=== PATIENT | female | born 1985 | race American Indian/Alaskan Native ===

== ENCOUNTER 2017-05-23 07:40 | Emergency (ER) | payer OTHER ==
[2017-05-23 07:46] VITALS: BP 147/107
[2017-05-23] MEDS ORDERED: DUONEB *Not for PRN Use IH ONE (10:12)
[2017-05-23] MEDS ORDERED: BSS 1 DROPS, TETRACAINE 0.5% 1 DROPS, FUL-GLO 1 MG OU ONE (10:13)
[2017-05-23] MEDS ORDERED: BSS ONE (10:19)
[2017-05-23] MEDS ORDERED: FUL-GLO OP ONE (10:19)
[2017-05-23] MEDS ORDERED: TETRACAINE 0.5% ONE (10:20)
--- NOTE | 2017-05-23 11:13 | Emergency Department Report ---
ED Eye Problem HPI - General Chief complaint: Eye Problems Stated complaint: EYE IRRITATION/SOB Time Seen by Provider: 05/23/17 10:09 Source: patient Mode of arrival: Ambulatory Limitations: No Limitations - History of Present Illness Initial comments: Patient is a 31-year-old female with history of asthma presents due to bilateral eye redness and pain 4 days. Patient denies any fever or chills. Patient states that she has had postnasal drainage and congestion for the past 2 days. Patient denies any cough or sore throat. Patient admits of having wheezing. Patient denies any injury to her eyes. Patient denies any history of contact lenses use. MD chief complaint: eye pain, eye redness Onset/Timin -: days(s) Onset Description: sudden Location: both eyes Place: home If Injury: none Eye Symptoms: burning, redness, pain Severity: moderate If Pain, Quality: aching Consistency: constant Associated Symptoms: other (post nasal driange and wheezing) - Related Data Previous Rx's Medication Instructions Recorded Last Taken Type Albuterol Sulfate [Proventil HFA] 1 - 2 puff IH Q4H PRN #1 hfa.aer.ad 09/03/14 1 Day Ago Rx metroNIDAZOLE [Flagyl] 500 mg PO BID #14 tablet 01/12/15 Unknown Rx metroNIDAZOLE [Flagyl] 500 mg PO BID #14 tablet 02/08/15 Unknown Rx Acetaminophen/Codeine [Tylenol #3] 1 tab PO Q6H PRN #20 tab 06/12/15 Unknown Rx Ibuprofen [Motrin] 600 mg PO Q8H PRN #40 tablet 06/12/15 Unknown Rx metroNIDAZOLE [Flagyl TAB] 500 mg PO Q12HR #20 tab 06/12/15 Unknown Rx ALBUTEROL Inhaler [ProAir HFA 1 puff INHALATION BID PRN #1 inha 12/17/15 Unknown Rx Inhaler] Azithromycin [Zithromax] 250 mg PO DAILY #1 pkg 12/17/15 Unknown Rx Loratadine [Claritin] 10 mg PO DAILY #30 tablet 12/17/15 Unknown Rx ALBUTEROL NEB's [Proventil 0.083% 2.5 mg IH TID PRN #25 neb 05/23/17 Unknown Rx NEBS] Cetirizine HCl [ZyrTEC] 10 mg PO DAILY #10 tab.rapdis 05/23/17 Unknown Rx Fluticasone [Flonase] 2 spray NS QDAY #1 bottle 05/23/17 Unknown Rx Prednisone [predniSONE 10 mg 10 mg PO .TAPER #1 tab.ds.pk 05/23/17 Unknown Rx (6-Day Pack, 21 Tabs)] Tobramycin 0.3% [Tobrex] 1 drop OU Q4HR #1 bottle 05/23/17 Unknown Rx Allergies Allergy/AdvReac Type Severity Reaction Status Date / Time latex Allergy Rash Verified 12/17/15 09:19 Penicillins Allergy Hives Verified 12/17/15 09:19 ED Review of Systems ROS: Stated complaint: EYE IRRITATION/SOB Other details as noted in HPI Comment: All other systems reviewed and negative Constitutional: no symptoms reported. denies: chills, fever Eyes: eye pain, eye discharge ENT: congestion. denies: ear pain, throat pain, dental pain, hearing loss, epistaxis Respiratory: denies: cough, shortness of breath, SOB with exertion, SOB at rest , stridor, wheezing Cardiovascular: denies: chest pain Gastrointestinal: denies: abdominal pain, nausea, vomiting, diarrhea Genitourinary: denies: urgency, dysuria, frequency Musculoskeletal: denies: back pain ED Past Medical Hx - Past Medical History Previous Medical History?: Yes Hx Asthma: Yes - Surgical History Past Surgical History?: No - Social History Smoking Status: Never Smoker Substance Use Type: Alcohol - Medications Home Medications: Home Medications Medication Instructions Recorded Confirmed Last Taken Type Albuterol Sulfate [Proventil HFA] 1 - 2 puff IH Q4H PRN #1 hfa.aer.ad 09/03/14 01/11/15 1 Day Ago Rx metroNIDAZOLE [Flagyl] 500 mg PO BID #14 tablet 01/12/15 Unknown Rx metroNIDAZOLE [Flagyl] 500 mg PO BID #14 tablet 02/08/15 Unknown Rx Acetaminophen/Codeine [Tylenol #3] 1 tab PO Q6H PRN #20 tab 06/12/15 Unknown Rx Ibuprofen [Motrin] 600 mg PO Q8H PRN #40 tablet 06/12/15 Unknown Rx metroNIDAZOLE [Flagyl TAB] 500 mg PO Q12HR #20 tab 06/12/15 Unknown Rx ALBUTEROL Inhaler [ProAir HFA 1 puff INHALATION BID PRN #1 inha 12/17/15 Unknown Rx Inhaler] Azithromycin [Zithromax] 250 mg PO DAILY #1 pkg 12/17/15 Unknown Rx Loratadine [Claritin] 10 mg PO DAILY #30 tablet 12/17/15 Unknown Rx ALBUTEROL NEB's [Proventil 0.083% 2.5 mg IH TID PRN #25 neb 05/23/17 Unknown Rx NEBS] Cetirizine HCl [ZyrTEC] 10 mg PO DAILY #10 tab.rapdis 05/23/17 Unknown Rx Fluticasone [Flonase] 2 spray NS QDAY #1 bottle 05/23/17 Unknown Rx Prednisone [predniSONE 10 mg 10 mg PO .TAPER #1 tab.ds.pk 05/23/17 Unknown Rx (6-Day Pack, 21 Tabs)] Tobramycin 0.3% [Tobrex] 1 drop OU Q4HR #1 bottle 05/23/17 Unknown Rx ED Physical Exam - General Limitations: No Limitations General appearance: alert, in no apparent distress - Head Head exam: Present: atraumatic, normocephalic, normal inspection - Eye Eye exam: Present: PERRL, EOMI, conjunctival injection. Absent: scleral icterus , nystagmus, periorbital swelling, periorbital tenderness Pupils: Present: normal accommodation - ENT ENT exam: Present: normal orophraynx, mucous membranes moist, normal external ear exam - Neck Neck exam: Present: normal inspection, full ROM. Absent: tenderness, meningismus - Respiratory Respiratory exam: Present: wheezes. Absent: rales, rhonchi, stridor - Cardiovascular Cardiovascular Exam: Present: regular rate, normal rhythm - Extremities Exam Extremities exam: Present: normal inspection, full ROM. Absent: tenderness - Back Exam Back exam: Present: normal inspection, full ROM. Absent: tenderness - Neurological Exam Neurological exam: Present: alert, oriented X3, normal gait - Psychiatric Psychiatric exam: Present: normal affect - Skin Skin exam: Present: warm, dry, intact ED Course Vital Signs 05/23/17 05/23/17 07:44 10:38 Temperature 97.8 F Pulse Rate 80 Pulse Rate [ 71 Bilateral] Pulse Rate [ 80 Throughout] Respiratory 16 Rate Respiratory 18 Rate [Bilateral ] Respiratory 18 Rate [ Throughout] Blood Pressure 147/107 O2 Sat by Pulse 100 Oximetry ED Medical Decision Making - Medical Decision Making Patient was in no acute distress, patient how wheezing upon auscultation in her bilateral lungs. Patient had conjunctival injection. Eye examination was performed Chakraborty lamp and patient had no corneal abrasion. Patient was given a DuoNeb treatment in the ER and Solu-Medrol IM. Patient was reevaluated after DuoNeb treatment and patient had clear bilateral lung sounds. Good air exchange. No wheezing. Patient will be discharged with a prescription for tobramycin to treat conjunctivitis. Patient will be prescribed prednisone tapering dose, Flonase, and Zyrtec. She will begin a refill for nebulizer treatments. - Differential Diagnosis conjunctivitis, sinusitis, asthma exacerbation. Critical care attestation.: If time is entered above; I have spent that time in minutes in the direct care of this critically ill patient, excluding procedure time. ED Disposition Clinical Impression: Wheezing Conjunctivitis Qualifiers: Conjunctivitis type: unspecified Laterality: bilateral Qualified Code(s): H10.9 - Unspecified conjunctivitis URI (upper respiratory infection) Qualifiers: URI type: unspecified viral URI Qualified Code(s): J06.9 - Acute upper respiratory infection, unspecified; B97.89 - Other viral agents as the cause of diseases classified elsewhere Disposition: DC-01 TO HOME OR SELFCARE Is pt being admited?: No Does the pt Need Aspirin: No Condition: Good Instructions: Conjunctivitis (ED), Asthma (ED), Upper Respiratory Infection (ED ) Additional Instructions: Apply Flonase spray to each nausea daily for 7 days. Do not use for more than 7 days. Apply tobramycin 2 drops to each lower eyelid every 4 hours for 7 days. You do not have to apply eyedrops while sleeping. Take prednisone tapering dose as prescribed. Prescriptions: ALBUTEROL NEB's [Proventil 0.083% NEBS] 2.5 mg IH TID PRN #25 neb PRN Reason: Wheezing Cetirizine HCl [ZyrTEC] 10 mg PO DAILY #10 tab.rapdis Fluticasone [Flonase] 2 spray NS QDAY #1 bottle Prednisone [predniSONE 10 mg (6-Day Pack, 21 Tabs)] 10 mg PO .TAPER #1 tab.ds.pk Tobramycin 0.3% [Tobrex] 1 drop OU Q4HR #1 bottle Referrals: PRIMARY CARE, [Primary Care Provider] - 3-5 Days [facility] [Outside] - 3-5 Days Time of Disposition: 11:18
== END 2017-05-23 11:23 | disposition home or self-care (01) ==
LOC: ED 07:40
DX: H10.9 Unspecified conjunctivitis (principal); B97.89 Other viral agents as the cause of diseases classified elsewhere; R06.2 Wheezing; Z88.0 Allergy status to penicillin; Z91.040 Latex allergy status
CPT/HCPCS: 94640; 96372; 99283; J2930

== ENCOUNTER 2017-06-04 17:04 | Inpatient (IN) | payer OTHER ==
[2017-06-04] MEDS ORDERED: PROVENTIL IH ONE ×3 (17:17→17:44)
[2017-06-04] MEDS ORDERED: MAGNESIUM SULFATE 1 GM in NACL 0.9% 50 ML IV ONE (17:27)
[2017-06-04] MEDS ORDERED: ATROVENT IH ONE (17:43)
--- NOTE | 2017-06-04 18:29 | Emergency Department Report ---
HPI - General Chief Complaint: Adult Asthma Time Seen by Provider: 06/04/17 17:27 - HPI HPI: 31-year-old female with history of asthma came to the ED with severe wheezing, cough, shortness of breath 2 days. Patient has been using albuterol inhalers at home without relief. Patient states she usually gets admitted about once a year for asthma exacerbation, this past few months she's been doing well and has not had any recent ER visit for asthma. Patient does not smoke, and does not believe that she has any respiratory hazards at work. ED Past Medical Hx - Past Medical History Previous Medical History?: Yes Hx Asthma: Yes - Surgical History Past Surgical History?: No - Social History Smoking Status: Never Smoker - Medications Home Medications: Home Medications Medication Instructions Recorded Confirmed Last Taken Type Albuterol Sulfate [Proventil HFA] 1 - 2 puff IH Q4H PRN #1 hfa.aer.ad 09/03/14 01/11/15 1 Day Ago Rx metroNIDAZOLE [Flagyl] 500 mg PO BID #14 tablet 01/12/15 Unknown Rx metroNIDAZOLE [Flagyl] 500 mg PO BID #14 tablet 02/08/15 Unknown Rx Acetaminophen/Codeine [Tylenol #3] 1 tab PO Q6H PRN #20 tab 06/12/15 Unknown Rx Ibuprofen [Motrin] 600 mg PO Q8H PRN #40 tablet 06/12/15 Unknown Rx metroNIDAZOLE [Flagyl TAB] 500 mg PO Q12HR #20 tab 06/12/15 Unknown Rx ALBUTEROL Inhaler [ProAir HFA 1 puff INHALATION BID PRN #1 inha 12/17/15 Unknown Rx Inhaler] Azithromycin [Zithromax] 250 mg PO DAILY #1 pkg 12/17/15 Unknown Rx Loratadine [Claritin] 10 mg PO DAILY #30 tablet 12/17/15 Unknown Rx ALBUTEROL NEB's [Proventil 0.083% 2.5 mg IH TID PRN #25 neb 05/23/17 Unknown Rx NEBS] Cetirizine HCl [ZyrTEC] 10 mg PO DAILY #10 tab.rapdis 05/23/17 Unknown Rx Fluticasone [Flonase] 2 spray NS QDAY #1 bottle 05/23/17 Unknown Rx Prednisone [predniSONE 10 mg 10 mg PO .TAPER #1 tab.ds.pk 05/23/17 Unknown Rx (6-Day Pack, 21 Tabs)] Tobramycin 0.3% [Tobrex] 1 drop OU Q4HR #1 bottle 05/23/17 Unknown Rx ED Review of Systems ROS: Stated complaint: ASHLEE Other details as noted in HPI Comment: All other systems reviewed and negative Constitutional: no symptoms reported Eyes: as per HPI ENT: as per HPI Respiratory: shortness of breath, wheezing Cardiovascular: chest pain Physical Exam - Physical Exam Vital Signs: Vital Signs 06/04/17 06/04/17 06/04/17 17:11 18:01 18:17 Temperature 98.5 F Pulse Rate 109 H 110 H Respiratory 24 26 H 26 H Rate Blood Pressure 161/107 Blood Pressure 152/100 [Left] O2 Sat by Pulse 96 98 100 Oximetry Physical Exam: - Physical Exam - General Limitations: No Limitations General appearance: alert, in no apparent distress, obese - Head Head exam: Present: atraumatic, normocephalic - Eye Eye exam: Present: normal appearance - ENT ENT exam: Present: mucous membranes moist - Neck Neck exam: Present: normal inspection - Respiratory Respiratory exam: Present: Severe expiratory wheezing - Cardiovascular Cardiovascular Exam: Present: normal rhythm, tachycardia. Absent: systolic murmur, diastolic murmur, rubs, gallop - GI/Abdominal GI/Abdominal exam: Present: soft, normal bowel sounds - Extremities Exam Extremities exam: Present: normal inspection - Back Exam Back exam: Present: normal inspection - Neurological Exam Neurological exam: Present: alert, oriented X3 - Psychiatric Psychiatric exam: normal affect and mood - Skin Skin exam: Present: warm, dry, intact, normal color. Absent: rash ED Course Vital Signs 06/04/17 06/04/17 06/04/17 17:11 18:01 18:17 Temperature 98.5 F Pulse Rate 109 H 110 H Respiratory 24 26 H 26 H Rate Blood Pressure 161/107 Blood Pressure 152/100 [Left] O2 Sat by Pulse 96 98 100 Oximetry - Reevaluation(s) Reevaluation #1: 06/04/17 21:20 Patient continued to have severe wheezing after hour-long albuterol treatment total 12.5 mg, after 2 g of magnesium sulfate, after 125 IV Solu-Medrol, PO2 was 48 on ABG, sats 85-87 on room air, will speak to the hospitalist about admitting the patient for further treatment. ED Medical Decision Making - Lab Data Result diagrams: 06/04/17 20:18 06/04/17 20:18 Critical care attestation.: If time is entered above; I have spent that time in minutes in the direct care of this critically ill patient, excluding procedure time. ED Disposition Clinical Impression: Acute asthma exacerbation Qualifiers: Asthma severity: severe persistent Qualified Code(s): J45.51 - Severe persistent asthma with (acute) exacerbation Disposition: OP ADMIT IP TO THIS HOSP Is pt being admited?: Yes Does the pt Need Aspirin: No Condition: Stable Referrals: PRIMARY CARE, [Primary Care Provider] - 3-5 Days
--- NOTE | 2017-06-04 18:42 | XRay Report ---
FINAL REPORT EXAM: XR CHEST 1V AP HISTORY: cp TECHNIQUE: AP portable view of the chest. PRIORS: None. FINDINGS: The cardiomediastinal silhouette appears normal. The lungs are clear. The bones and soft tissues are unremarkable. IMPRESSION: No evidence of acute cardiopulmonary disease.
[2017-06-04] MEDS ORDERED: NACL 0.9% 1000 ML 1,000 ML IV ONE (20:12)
[2017-06-04 21:03] LABS: Alanine Aminotransferase 30 units/L (7-56); Albumin 4.4 g/dL (3.9-5); Albumin/Globulin Ratio 1.3 %; Alkaline Phosphatase 86 units/L (35-129); Anion Gap 24 mmol/L; BUN/Creatinine Ratio 26.66; Blood Urea Nitrogen 16 mg/dL (7-17); Calcium 9.1 mg/dL (8.4-10.2); Carbon Dioxide 22 mmol/L (22-30); Chloride 95.7 mmol/L (98-107); Glucose 118 mg/dL (65-100); Potassium 4.3 mmol/L (3.6-5.0); Sodium 137 mmol/L (137-145); Total Protein 7.8 g/dL (6.3-8.2)
[2017-06-04] MEDS ORDERED: XOPENEX IH ONE (21:09)
[2017-06-04 21:21] LABS: Hematocrit 42.4 % (30.3-42.9); Mean Corpuscular HGB Conc 33 % (30-34); Mean Corpuscular Hemoglobin 29 pg (28-32); Mean Corpuscular Volume 87 fl (79-97); Platelet Count 263 K/mm3 (140-440); Red Blood Count 4.87 M/mm3 (3.65-5.03); Red Cell Distribution Width 16.3 % (13.2-15.2)
[2017-06-04 21:28] LABS: ISTAT Base Excess -2; ISTAT DEVICE 0; ISTAT HCO3 23.4; ISTAT PCO2 38.3 (35-45); ISTAT PH 7.394 (7.35-7.45); ISTAT PO2 38 (80-105); ISTAT SO2 72; ISTAT TCO2 25
[2017-06-04 21:28] LABS: ISTAT Base Excess -3; ISTAT DEVICE 0; ISTAT HCO3 21.5; ISTAT PCO2 34.6 (35-45); ISTAT PH 7.402 (7.35-7.45); ISTAT PO2 49 (80-105); ISTAT SO2 85; ISTAT TCO2 23
[2017-06-04 22:15] LABS: Basophils % (Manual) 0 % (0.0-1.8); Blastocytes % (Manual) 0 %; Eosinophils % (Manual) 0.5 % (0.0-4.3)
[2017-06-04 22:16] LABS: Diff Status Complete; Hypochromasia 1+
[2017-06-04] MEDS ORDERED: DULCOLAX PR PRN (22:45)
[2017-06-04] MEDS ORDERED: ZOFRAN IV PRN (22:45)
[2017-06-04] MEDS ORDERED: TYLENOL PO PRN (22:45)
[2017-06-04] MEDS ORDERED: MILK OF MAGNESIA PO PRN (22:45)
--- NOTE | 2017-06-04 22:47 | History and Physical Report ---
History of Present Illness Date of examination: 06/04/17 History of present illness: 31-year-old woman with a history of asthma comes emergency room with complaints of shortness of breath. Yesterday she states that she developed cold, cough productive of green phlegm. Her shortness of breath worsened not relieved with her nebulizer treatments at home Review Of Systems: Constitutional: no weight loss Ears, eyes, nose, mouth and throat: no nasal congestion, no nasal discharge, no sinus pressure, blurry vision, diplopia Neck: No neck pain or rigidity. Cardiovascular: chest pain, orthopnea, palpitations Respiratory: +shortness of breath, cough Gastrointestinal: abdominal pain, hematochezia Genitourinary : no dysuria, frequency , hematuria Musculoskeletal: no muscle ache Integumentary: no rash, no pruritis Neurological: no parathesias, focal weakness Endocrine: no cold or heat intolerance, no polyuria or polydipsia Hematologic/Lymphatic: no easy bruising, no easy bleeding, no gland swelling Allergic/Immunologic: no urticaria, no angioedema. PAST MEDICAL HISTORY: asthma PAST SURGICAL HISTORY: None FAMILY HISTORY: asthma SOCIAL HISTORY: Social alcohol, tobacco, no drugs Medications and Allergies Allergies Allergy/AdvReac Type Severity Reaction Status Date / Time latex Allergy Rash Verified 12/17/15 09:19 Penicillins Allergy Hives Verified 12/17/15 09:19 Home Medications Medication Instructions Recorded Confirmed Last Taken Type Albuterol Sulfate [Proventil HFA] 1 - 2 puff IH Q4H PRN #1 hfa.aer.ad 09/03/14 01/11/15 1 Day Ago Rx metroNIDAZOLE [Flagyl] 500 mg PO BID #14 tablet 01/12/15 Unknown Rx metroNIDAZOLE [Flagyl] 500 mg PO BID #14 tablet 02/08/15 Unknown Rx Acetaminophen/Codeine [Tylenol #3] 1 tab PO Q6H PRN #20 tab 06/12/15 Unknown Rx Ibuprofen [Motrin] 600 mg PO Q8H PRN #40 tablet 06/12/15 Unknown Rx metroNIDAZOLE [Flagyl TAB] 500 mg PO Q12HR #20 tab 06/12/15 Unknown Rx ALBUTEROL Inhaler [ProAir HFA 1 puff INHALATION BID PRN #1 inha 12/17/15 Unknown Rx Inhaler] Azithromycin [Zithromax] 250 mg PO DAILY #1 pkg 12/17/15 Unknown Rx Loratadine [Claritin] 10 mg PO DAILY #30 tablet 12/17/15 Unknown Rx ALBUTEROL NEB's [Proventil 0.083% 2.5 mg IH TID PRN #25 neb 05/23/17 Unknown Rx NEBS] Cetirizine HCl [ZyrTEC] 10 mg PO DAILY #10 tab.rapdis 05/23/17 Unknown Rx Fluticasone [Flonase] 2 spray NS QDAY #1 bottle 05/23/17 Unknown Rx Prednisone [predniSONE 10 mg 10 mg PO .TAPER #1 tab.ds.pk 05/23/17 Unknown Rx (6-Day Pack, 21 Tabs)] Tobramycin 0.3% [Tobrex] 1 drop OU Q4HR #1 bottle 05/23/17 Unknown Rx Exam - Physical Exam Narrative exam: Gen. appearance: Patient lying in bed in no acute distress HEENT: Normocephalic/atraumatic, pupils equal round reactive to light, extra alkaline movement intact, no scleral icterus, no JVD or thyromegaly or nodule, neck is supple, mucous membrane moist, no erythema or exudate Heart: S1-S2, regular rate and rhythm Lungs: Wheezing bilateral breathing comfortable Abdomen: Positive bowel sounds, nontender, nondistended, no organomegaly Extremities: No edema, cyanosis, clubbing Neuro:: Oriented 3 , cranial nerves II-12 intact, speech, motor intact Skin: No rash, nodules, warm dry - Constitutional Vitals: Temp Pulse Resp BP Pulse Ox 98.5 F 115 H 26 H 145/101 100 06/04/17 18:01 06/04/17 22:32 06/04/17 22:32 06/04/17 22:32 06/04/17 22:32 Results - Labs CBC & Chem 7: 06/04/17 20:18 06/04/17 20:18 Labs: Abnormal lab results 06/04/17 06/04/17 06/04/17 Range/Units 20:18 20:18 20:56 WBC 25.0 H (4.5-11.0) K/mm3 RDW 16.3 H (13.2-15.2) % Seg Neuts % (Manual) 85.5 H (40.0-70.0) % Lymphocytes % (Manual) 6.0 L (13.4-35.0) % Seg Neutrophils # Man 21.4 H (1.8-7.7) K/mm3 Monocytes # (Manual) 1.1 H (0.0-0.8) K/mm3 POC ABG pCO2 (35-45) POC ABG pO2 38 L (80-105) Chloride 95.7 L (98-107) mmol/L Creatinine 0.6 L (0.7-1.2) mg/dL Glucose 118 H (65-100) mg/dL AST 53 H (5-40) units/L 06/04/17 Range/Units 21:10 WBC (4.5-11.0) K/mm3 RDW (13.2-15.2) % Seg Neuts % (Manual) (40.0-70.0) % Lymphocytes % (Manual) (13.4-35.0) % Seg Neutrophils # Man (1.8-7.7) K/mm3 Monocytes # (Manual) (0.0-0.8) K/mm3 POC ABG pCO2 34.6 L (35-45) POC ABG pO2 49 L (80-105) Chloride (98-107) mmol/L Creatinine (0.7-1.2) mg/dL Glucose (65-100) mg/dL AST (5-40) units/L - Imaging and Cardiology EKG: image reviewed Chest x-ray: image reviewed Assessment and Plan Assessment Asthma exacerbation Steroid-induced leukocytosis, labs were drawn after steroids given Plan Admit to medicine Start IV steroids, nebulizer treatments, DVT prophylaxis
[2017-06-05] MEDS: DUONEB *Not for PRN Use IH SCH ×2 (01:20→08:06)
[2017-06-05] MEDS ORDERED: PROVENTIL IH PRN (01:22)
--- NOTE | 2017-06-05 03:25 | Admit Criteria Form ---
Admission Criteria Documentation: ASTHMA Clinical Indications for Admission to Inpatient Care ([place]/check or initial the applicable condition/criteria) Admission is indicated for ANY ONE of the following (1)(2)(3)(4): [ ]I. Ventilatory support required [ ]II. Peak expiratory flow rate less than 25% of predicted or personal best before treatment [ ]III. Peak expiratory flow rate less than 40% of predicted or personal best after treatment [ ]IV. Peak expiratory flow rate between 40% and 60% of predicted or personal best after treatment, and ANY ONE of the following: [ ]a) History of asthma requiring intubation [ ]b) Hospitalization for asthma within the past year [ ]c) Current or recent use of oral corticosteroids for asthma [ ]d) Use of more than 1 canister of inhaled beta2-agonist in past month [ ]e) Exacerbation due to allergic reaction to food [ ]f) Inadequate access to medical care or medications [ ]g) Adherence to post-discharge asthma regimen cannot be assured (eg, psychosocial problems, poor adherence, no available follow-up care) [ ]V. Hypoxemia [ ]. PaCO2 elevation from baseline by 2 mm Hg (0.27 kPa) or greater [ ]VII. Cyanosis [ ]VIII. Silent chest (absent or markedly diminished breath sounds) [ ]IX. Cardiac dysrhythmia (eg, Bradycardia) [ ]X. Hemodynamic instability [ ]XI. Altered mental status [ ]XII. Radiographic evidence of complication requiring inpatient treatment (eg, pneumonia, pneumothorax) [X ]XIII. Inpatient admission required[A] rather than observation care because of ANY ONE of the following: [X ]a) Respiratory finding that is severe or persistent (eg, dyspnea, Tachypnea, accessory muscle use) [ ]b) Other condition, treatment, or monitoring requiring inpatient admission Extended stay beyond goal length of stay may be needed for (1)(25)(27): [ ]a) Severe respiratory distress or respiratory failure (22)(23)(28)(29) [ ]b) Secondary causes and complications (24) [ ]c) Status asthmaticus [ ]d) Chronic obstructive asthma (eg, asthma-COPD overlap syndrome) (30) [ ]e) Older patients (65 years or older) (28) [ ]f) Slow resolution [ ]g) Clinically significant exacerbation of comorbidities (e.g., congestive heart failure,atrial fibrillation) The original [facility] [employer] content created by [facility] has been revised. The portions of the content which have been revised are identified through the use of italic text or in bold, and [facility] has neither reviewed nor approved the modified material. All other unmodified content is copyright [facility] Please see references footnoted in the original [facility] edition 2017 Admission Criteria Met: Yes
[2017-06-05 04:39] LABS: Hematocrit 41.4 % (30.3-42.9); Hemoglobin 13.4 gm/dl (10.1-14.3); Mean Corpuscular HGB Conc 32 % (30-34); Mean Corpuscular Hemoglobin 28 pg (28-32); Mean Corpuscular Volume 86 fl (79-97); Platelet Count 266 K/mm3 (140-440); Red Blood Count 4.79 M/mm3 (3.65-5.03); Red Cell Distribution Width 16.4 % (13.2-15.2)
[2017-06-05 04:44] LABS: White Blood Count 24.6 K/mm3 (4.5-11.0)
[2017-06-05 04:49] LABS: Anion Gap 20 mmol/L; BUN/Creatinine Ratio 32.85; Blood Urea Nitrogen 23 mg/dL (7-17); Calcium 8.8 mg/dL (8.4-10.2); Carbon Dioxide 21 mmol/L (22-30); Glucose 145 mg/dL (65-100); Potassium 4.1 mmol/L (3.6-5.0); Sodium 137 mmol/L (137-145)
[2017-06-05 05:34] LABS: Basophils % (Manual) 0 % (0.0-1.8); Blastocytes % (Manual) 0 %; Eosinophils % (Manual) 0 % (0.0-4.3)
[2017-06-05 05:35] LABS: Diff Status Complete; Platelet Estimate Consistent w Auto; RBC Morphology Normal
--- NOTE | 2017-06-05 07:37 | Progress Note ---
Assessment and Plan Assessment and plan: Asthma exacerbation Started on IV steroids IV Solumedrol 80mg every 8 hours. Started on Duoneb every 6 hours. Aggressive nebulizer's Started on empiric treatment IV antibiotic Azithromycin Oxygen supplement Sportive care Steroid-induced leukocytosis, Labs were drawn after steroids given Repeat CBC DVT prophylaxis Lovenox History Interval history: Patient has uneventful overnight, she verbalized feeling better. Hospitalist Physical - Constitutional Vitals: Temp Pulse Resp BP Pulse Ox 98.5 F 103 H 20 145/101 97 06/04/17 18:01 06/05/17 04:00 06/05/17 04:00 06/04/17 22:32 06/05/17 03:44 General appearance: Present: no acute distress - EENT Eyes: Present: PERRL ENT: hearing intact - Neck Neck: Present: supple - Respiratory Respiratory effort: normal Respiratory: negative: wheezing - Cardiovascular Rhythm: regular Heart Sounds: Present: S1 & S2 - Extremities Extremities: no ischemia Peripheral Pulses: within normal limits - Abdominal General gastrointestinal: soft, non-tender - Integumentary Integumentary: Present: clear, warm, dry - Psychiatric Psychiatric: appropriate mood/affect - Neurologic Neurologic: CNII-XII intact - Allied Health Allied health notes reviewed: nursing Results - Labs CBC & Chem 7: 06/05/17 04:16 06/05/17 04:16 Labs: Laboratory Last Values WBC 24.6 K/mm3 (4.5-11.0) H 06/05/17 04:16 RBC 4.79 M/mm3 (3.65-5.03) 06/05/17 04:16 Hgb 13.4 gm/dl (10.1-14.3) 06/05/17 04:16 Hct 41.4 % (30.3-42.9) 06/05/17 04:16 MCV 86 fl (79-97) 06/05/17 04:16 MCH 28 pg (28-32) 06/05/17 04:16 MCHC 32 % (30-34) 06/05/17 04:16 RDW 16.4 % (13.2-15.2) H 06/05/17 04:16 Plt Count 266 K/mm3 (140-440) 06/05/17 04:16 Add Manual Diff Complete 06/05/17 04:16 Total Counted 100 06/05/17 04:16 Seg Neutrophils % Investment Fund Manager 06/05/17 04:16 Seg Neuts % (Manual) 90.0 % (40.0-70.0) H 06/05/17 04:16 Band Neutrophils % 0 % 06/05/17 04:16 Lymphocytes % (Manual) 6.0 % (13.4-35.0) L 06/05/17 04:16 Reactive Lymphs % (Man) 0 % 06/05/17 04:16 Monocytes % (Manual) 4.0 % (0.0-7.3) 06/05/17 04:16 Eosinophils % (Manual) 0 % (0.0-4.3) 06/05/17 04:16 Basophils % (Manual) 0 % (0.0-1.8) 06/05/17 04:16 Metamyelocytes % 0 % 06/05/17 04:16 Myelocytes % 0 % 06/05/17 04:16 Promyelocytes % 0 % 06/05/17 04:16 Blast Cells % 0 % 06/05/17 04:16 Nucleated RBC % Not Reportable 06/05/17 04:16 Seg Neutrophils # Man 22.1 K/mm3 (1.8-7.7) H 06/05/17 04:16 Band Neutrophils # 0.0 K/mm3 06/05/17 04:16 Lymphocytes # (Manual) 1.5 K/mm3 (1.2-5.4) 06/05/17 04:16 Abs React Lymphs (Man) 0.0 K/mm3 06/05/17 04:16 Monocytes # (Manual) 1.0 K/mm3 (0.0-0.8) H 06/05/17 04:16 Eosinophils # (Manual) 0.0 K/mm3 (0.0-0.4) 06/05/17 04:16 Basophils # (Manual) 0.0 K/mm3 (0.0-0.1) 06/05/17 04:16 Metamyelocytes # 0.0 K/mm3 06/05/17 04:16 Myelocytes # 0.0 K/mm3 06/05/17 04:16 Promyelocytes # 0.0 K/mm3 06/05/17 04:16 Blast Cells # 0.0 K/mm3 06/05/17 04:16 WBC Morphology Not Reportable 06/05/17 04:16 Hypersegmented Neuts Not Reportable 06/05/17 04:16 Hyposegmented Neuts Not Reportable 06/05/17 04:16 Hypogranular Neuts Not Reportable 06/05/17 04:16 Smudge Cells Not Reportable 06/05/17 04:16 Toxic Granulation Not Reportable 06/05/17 04:16 Toxic Vacuolation Not Reportable 06/05/17 04:16 Dohle Bodies Not Reportable 06/05/17 04:16 Pelger-Huet Anomaly Not Reportable 06/05/17 04:16 Ant Rods Not Reportable 06/05/17 04:16 Platelet Estimate Consistent w auto 06/05/17 04:16 Clumped Platelets Not Reportable 06/05/17 04:16 Plt Clumps, EDTA Not Reportable 06/05/17 04:16 Large Platelets Not Reportable 06/05/17 04:16 Giant Platelets Not Reportable 06/05/17 04:16 Platelet Satelliting Not Reportable 06/05/17 04:16 Plt Morphology Comment Not Reportable 06/05/17 04:16 RBC Morphology Normal 06/05/17 04:16 Dimorphic RBCs Not Reportable 06/05/17 04:16 Polychromasia Not Reportable 06/05/17 04:16 Hypochromasia Not Reportable 06/05/17 04:16 Poikilocytosis Not Reportable 06/05/17 04:16 Anisocytosis Not Reportable 06/05/17 04:16 Microcytosis Not Reportable 06/05/17 04:16 Macrocytosis Not Reportable 06/05/17 04:16 Spherocytes Not Reportable 06/05/17 04:16 Pappenheimer Bodies Not Reportable 06/05/17 04:16 Sickle Cells Not Reportable 06/05/17 04:16 Target Cells Not Reportable 06/05/17 04:16 Tear Drop Cells Not Reportable 06/05/17 04:16 Ovalocytes Not Reportable 06/05/17 04:16 Helmet Cells Not Reportable 06/05/17 04:16 [place] Bodies Not Reportable 06/05/17 04:16 [place] Rings Not Reportable 06/05/17 04:16 [place] Cells Not Reportable 06/05/17 04:16 Bite Cells Not Reportable 06/05/17 04:16 Crenated Cell Not Reportable 06/05/17 04:16 Elliptocytes Not Reportable 06/05/17 04:16 Acanthocytes (Spur) Not Reportable 06/05/17 04:16 Rouleaux Not Reportable 06/05/17 04:16 Hemoglobin C Crystals Not Reportable 06/05/17 04:16 Schistocytes Not Reportable 06/05/17 04:16 Malaria parasites Not Reportable 06/05/17 04:16 Jaya Bodies Not Reportable 06/05/17 04:16 Hem Pathologist Commnt No 06/05/17 04:16 POC ABG pH 7.402 (7.35-7.45) 06/04/17 21:10 POC ABG pCO2 34.6 (35-45) L 06/04/17 21:10 POC ABG pO2 49 (80-105) L 06/04/17 21:10 POC ABG HCO3 21.5 06/04/17 21:10 POC ABG Total CO2 23 06/04/17 21:10 POC ABG O2 Sat 85 06/04/17 21:10 POC ABG Base Excess -3 06/04/17 21:10 FiO2 21 % 06/04/17 21:10 Sodium 137 mmol/L (137-145) 06/05/17 04:16 Potassium 4.1 mmol/L (3.6-5.0) 06/05/17 04:16 Chloride 100.0 mmol/L (98-107) 06/05/17 04:16 Carbon Dioxide 21 mmol/L (22-30) L 06/05/17 04:16 Anion Gap 20 mmol/L 06/05/17 04:16 BUN 23 mg/dL (7-17) H 06/05/17 04:16 Creatinine 0.7 mg/dL (0.7-1.2) 06/05/17 04:16 Estimated GFR > 60 ml/min 06/05/17 04:16 BUN/Creatinine Ratio 32.85 % 06/05/17 04:16 Glucose 145 mg/dL (65-100) H 06/05/17 04:16 Calcium 8.8 mg/dL (8.4-10.2) 06/05/17 04:16 Total Bilirubin 0.90 mg/dL (0.1-1.2) 06/04/17 20:18 AST 53 units/L (5-40) H 06/04/17 20:18 ALT 30 units/L (7-56) 06/04/17 20:18 Alkaline Phosphatase 86 units/L (35-129) 06/04/17 20:18 Total Protein 7.8 g/dL (6.3-8.2) 06/04/17 20:18 Albumin 4.4 g/dL (3.9-5) 06/04/17 20:18 Albumin/Globulin Ratio 1.3 % 06/04/17 20:18
[2017-06-05] MEDS ORDERED: LOVENOX SUB-Q SCH (10:00)
[2017-06-05] MEDS: LOVENOX SUB-Q SCH (11:26)
[2017-06-05] MEDS: ZITHROMAX 500 MG in NACL 0.9% 250ML 250 ML IV SCH (11:26)
[2017-06-05] MEDS ORDERED: ATROVENT IH SCH (14:00)
[2017-06-05] MEDS: XOPENEX IH SCH ×4 (14:31→23:26)
[2017-06-05] MEDS: ATROVENT IH SCH ×4 (14:31→23:26)
[2017-06-06] MEDS: XOPENEX IH SCH ×3 (03:43→16:02)
[2017-06-06] MEDS: ATROVENT IH SCH ×5 (03:43→20:09)
--- NOTE | 2017-06-06 08:17 | Progress Note ---
<ANALI MARCUM - Last Filed: 06/06/17 08:43> Assessment and Plan Assessment and plan: Acute on chronic hypoxic respiratory failure Secondary to bronchial asthma exacerbation Management IV steroids, IV antibiotics, nebulizers, oxygen Supplement inhalation steroids Supportive care Asthma exacerbation Started on IV steroids IV Solumedrol 80mg every 8 hours. Started on Duoneb every 6 hours. Aggressive nebulizer's/inhalation steroids Started on empiric treatment IV antibiotic Azithromycin Oxygen supplement Sportive care Acute bronchitis Continue on bronchodilators and IV Zithromax Steroid-induced leukocytosis, Hypoxia secondary to high-dose steroid use as well as acute bronchitis Closely monitor Repeat CBC DVT prophylaxis Lovenox History Interval history: Patient verbalized feeling better. She is still wheezing and having difficulty of breathing. Hospitalist Physical - Constitutional Vitals: Temp Pulse Resp BP Pulse Ox 98.5 F 91 H 18 154/114 99 06/05/17 22:55 06/06/17 08:00 06/06/17 08:00 06/05/17 22:55 06/06/17 08:12 General appearance: Present: no acute distress - EENT Eyes: Present: PERRL ENT: hearing intact - Neck Neck: Present: supple - Respiratory Respiratory effort: normal Respiratory: bilateral: wheezing - Cardiovascular Rhythm: regular Heart Sounds: Present: S1 & S2 - Extremities Extremities: no ischemia Peripheral Pulses: within normal limits - Abdominal General gastrointestinal: soft, non-tender - Integumentary Integumentary: Present: clear, warm, dry - Psychiatric Psychiatric: appropriate mood/affect - Neurologic Neurologic: CNII-XII intact - Allied Health Allied health notes reviewed: nursing Results - Labs CBC & Chem 7: 06/05/17 04:16 06/05/17 04:16 Labs: Laboratory Last Values WBC 24.6 K/mm3 (4.5-11.0) H 06/05/17 04:16 RBC 4.79 M/mm3 (3.65-5.03) 06/05/17 04:16 Hgb 13.4 gm/dl (10.1-14.3) 06/05/17 04:16 Hct 41.4 % (30.3-42.9) 06/05/17 04:16 MCV 86 fl (79-97) 06/05/17 04:16 MCH 28 pg (28-32) 06/05/17 04:16 MCHC 32 % (30-34) 06/05/17 04:16 RDW 16.4 % (13.2-15.2) H 06/05/17 04:16 Plt Count 266 K/mm3 (140-440) 06/05/17 04:16 Add Manual Diff Complete 06/05/17 04:16 Total Counted 100 06/05/17 04:16 Seg Neutrophils % Retail Sales Director 06/05/17 04:16 Seg Neuts % (Manual) 90.0 % (40.0-70.0) H 06/05/17 04:16 Band Neutrophils % 0 % 06/05/17 04:16 Lymphocytes % (Manual) 6.0 % (13.4-35.0) L 06/05/17 04:16 Reactive Lymphs % (Man) 0 % 06/05/17 04:16 Monocytes % (Manual) 4.0 % (0.0-7.3) 06/05/17 04:16 Eosinophils % (Manual) 0 % (0.0-4.3) 06/05/17 04:16 Basophils % (Manual) 0 % (0.0-1.8) 06/05/17 04:16 Metamyelocytes % 0 % 06/05/17 04:16 Myelocytes % 0 % 06/05/17 04:16 Promyelocytes % 0 % 06/05/17 04:16 Blast Cells % 0 % 06/05/17 04:16 Nucleated RBC % Not Reportable 06/05/17 04:16 Seg Neutrophils # Man 22.1 K/mm3 (1.8-7.7) H 06/05/17 04:16 Band Neutrophils # 0.0 K/mm3 06/05/17 04:16 Lymphocytes # (Manual) 1.5 K/mm3 (1.2-5.4) 06/05/17 04:16 Abs React Lymphs (Man) 0.0 K/mm3 06/05/17 04:16 Monocytes # (Manual) 1.0 K/mm3 (0.0-0.8) H 06/05/17 04:16 Eosinophils # (Manual) 0.0 K/mm3 (0.0-0.4) 06/05/17 04:16 Basophils # (Manual) 0.0 K/mm3 (0.0-0.1) 06/05/17 04:16 Metamyelocytes # 0.0 K/mm3 06/05/17 04:16 Myelocytes # 0.0 K/mm3 06/05/17 04:16 Promyelocytes # 0.0 K/mm3 06/05/17 04:16 Blast Cells # 0.0 K/mm3 06/05/17 04:16 WBC Morphology Not Reportable 06/05/17 04:16 Hypersegmented Neuts Not Reportable 06/05/17 04:16 Hyposegmented Neuts Not Reportable 06/05/17 04:16 Hypogranular Neuts Not Reportable 06/05/17 04:16 Smudge Cells Not Reportable 06/05/17 04:16 Toxic Granulation Not Reportable 06/05/17 04:16 Toxic Vacuolation Not Reportable 06/05/17 04:16 Dohle Bodies Not Reportable 06/05/17 04:16 Pelger-Huet Anomaly Not Reportable 06/05/17 04:16 Ant Rods Not Reportable 06/05/17 04:16 Platelet Estimate Consistent w auto 06/05/17 04:16 Clumped Platelets Not Reportable 06/05/17 04:16 Plt Clumps, EDTA Not Reportable 06/05/17 04:16 Large Platelets Not Reportable 06/05/17 04:16 Giant Platelets Not Reportable 06/05/17 04:16 Platelet Satelliting Not Reportable 06/05/17 04:16 Plt Morphology Comment Not Reportable 06/05/17 04:16 RBC Morphology Normal 06/05/17 04:16 Dimorphic RBCs Not Reportable 06/05/17 04:16 Polychromasia Not Reportable 06/05/17 04:16 Hypochromasia Not Reportable 06/05/17 04:16 Poikilocytosis Not Reportable 06/05/17 04:16 Anisocytosis Not Reportable 06/05/17 04:16 Microcytosis Not Reportable 06/05/17 04:16 Macrocytosis Not Reportable 06/05/17 04:16 Spherocytes Not Reportable 06/05/17 04:16 Pappenheimer Bodies Not Reportable 06/05/17 04:16 Sickle Cells Not Reportable 06/05/17 04:16 Target Cells Not Reportable 06/05/17 04:16 Tear Drop Cells Not Reportable 06/05/17 04:16 Ovalocytes Not Reportable 06/05/17 04:16 Helmet Cells Not Reportable 06/05/17 04:16 [place] Bodies Not Reportable 06/05/17 04:16 [place] Rings Not Reportable 06/05/17 04:16 [place] Cells Not Reportable 06/05/17 04:16 Bite Cells Not Reportable 06/05/17 04:16 Crenated Cell Not Reportable 06/05/17 04:16 Elliptocytes Not Reportable 06/05/17 04:16 Acanthocytes (Spur) Not Reportable 06/05/17 04:16 Rouleaux Not Reportable 06/05/17 04:16 Hemoglobin C Crystals Not Reportable 06/05/17 04:16 Schistocytes Not Reportable 06/05/17 04:16 Malaria parasites Not Reportable 06/05/17 04:16 Jaya Bodies Not Reportable 06/05/17 04:16 Hem Pathologist Commnt No 06/05/17 04:16 POC ABG pH 7.402 (7.35-7.45) 06/04/17 21:10 POC ABG pCO2 34.6 (35-45) L 06/04/17 21:10 POC ABG pO2 49 (80-105) L 06/04/17 21:10 POC ABG HCO3 21.5 06/04/17 21:10 POC ABG Total CO2 23 06/04/17 21:10 POC ABG O2 Sat 85 06/04/17 21:10 POC ABG Base Excess -3 06/04/17 21:10 FiO2 21 % 06/04/17 21:10 Sodium 137 mmol/L (137-145) 06/05/17 04:16 Potassium 4.1 mmol/L (3.6-5.0) 06/05/17 04:16 Chloride 100.0 mmol/L (98-107) 06/05/17 04:16 Carbon Dioxide 21 mmol/L (22-30) L 06/05/17 04:16 Anion Gap 20 mmol/L 06/05/17 04:16 BUN 23 mg/dL (7-17) H 06/05/17 04:16 Creatinine 0.7 mg/dL (0.7-1.2) 06/05/17 04:16 Estimated GFR > 60 ml/min 06/05/17 04:16 BUN/Creatinine Ratio 32.85 % 06/05/17 04:16 Glucose 145 mg/dL (65-100) H 06/05/17 04:16 Calcium 8.8 mg/dL (8.4-10.2) 06/05/17 04:16 Total Bilirubin 0.90 mg/dL (0.1-1.2) 06/04/17 20:18 AST 53 units/L (5-40) H 06/04/17 20:18 ALT 30 units/L (7-56) 06/04/17 20:18 Alkaline Phosphatase 86 units/L (35-129) 06/04/17 20:18 Total Protein 7.8 g/dL (6.3-8.2) 06/04/17 20:18 Albumin 4.4 g/dL (3.9-5) 06/04/17 20:18 Albumin/Globulin Ratio 1.3 % 06/04/17 20:18 Hepatitis A IgM Ab Non-reactive (NonReactive) 06/05/17 14:00 Hep Bs Antigen Reactive (Negative) 06/05/17 14:00 Hep B Core IgM Ab Non-reactive (NonReactive) 06/05/17 14:00 Hepatitis C Antibody Non-reactive (NonReactive) 06/05/17 14:00 <ALEXY FIERRO R - Last Filed: 06/06/17 09:44> Assessment and Plan Assessment and plan: I saw and evaluated the patient. I agree with the findings and the plan of care as documented in the Nurse Practitioner's~note, with the following corrections and additions. Hospitalist Physical - Constitutional Vitals: Temp Pulse Resp BP Pulse Ox 98.5 F 113 H 16 134/81 97 06/06/17 09:32 06/06/17 09:32 06/06/17 09:32 06/06/17 09:32 06/06/17 09:32 Results - Labs CBC & Chem 7: 06/05/17 04:16 06/05/17 04:16 Labs: Laboratory Last Values WBC 24.6 K/mm3 (4.5-11.0) H 06/05/17 04:16 RBC 4.79 M/mm3 (3.65-5.03) 06/05/17 04:16 Hgb 13.4 gm/dl (10.1-14.3) 06/05/17 04:16 Hct 41.4 % (30.3-42.9) 06/05/17 04:16 MCV 86 fl (79-97) 06/05/17 04:16 MCH 28 pg (28-32) 06/05/17 04:16 MCHC 32 % (30-34) 06/05/17 04:16 RDW 16.4 % (13.2-15.2) H 06/05/17 04:16 Plt Count 266 K/mm3 (140-440) 06/05/17 04:16 Add Manual Diff Complete 06/05/17 04:16 Total Counted 100 06/05/17 04:16 Seg Neutrophils % Retail Sales Director 06/05/17 04:16 Seg Neuts % (Manual) 90.0 % (40.0-70.0) H 06/05/17 04:16 Band Neutrophils % 0 % 06/05/17 04:16 Lymphocytes % (Manual) 6.0 % (13.4-35.0) L 06/05/17 04:16 Reactive Lymphs % (Man) 0 % 06/05/17 04:16 Monocytes % (Manual) 4.0 % (0.0-7.3) 06/05/17 04:16 Eosinophils % (Manual) 0 % (0.0-4.3) 06/05/17 04:16 Basophils % (Manual) 0 % (0.0-1.8) 06/05/17 04:16 Metamyelocytes % 0 % 06/05/17 04:16 Myelocytes % 0 % 06/05/17 04:16 Promyelocytes % 0 % 06/05/17 04:16 Blast Cells % 0 % 06/05/17 04:16 Nucleated RBC % Not Reportable 06/05/17 04:16 Seg Neutrophils # Man 22.1 K/mm3 (1.8-7.7) H 06/05/17 04:16 Band Neutrophils # 0.0 K/mm3 06/05/17 04:16 Lymphocytes # (Manual) 1.5 K/mm3 (1.2-5.4) 06/05/17 04:16 Abs React Lymphs (Man) 0.0 K/mm3 06/05/17 04:16 Monocytes # (Manual) 1.0 K/mm3 (0.0-0.8) H 06/05/17 04:16 Eosinophils # (Manual) 0.0 K/mm3 (0.0-0.4) 06/05/17 04:16 Basophils # (Manual) 0.0 K/mm3 (0.0-0.1) 06/05/17 04:16 Metamyelocytes # 0.0 K/mm3 06/05/17 04:16 Myelocytes # 0.0 K/mm3 06/05/17 04:16 Promyelocytes # 0.0 K/mm3 06/05/17 04:16 Blast Cells # 0.0 K/mm3 06/05/17 04:16 WBC Morphology Not Reportable 06/05/17 04:16 Hypersegmented Neuts Not Reportable 06/05/17 04:16 Hyposegmented Neuts Not Reportable 06/05/17 04:16 Hypogranular Neuts Not Reportable 06/05/17 04:16 Smudge Cells Not Reportable 06/05/17 04:16 Toxic Granulation Not Reportable 06/05/17 04:16 Toxic Vacuolation Not Reportable 06/05/17 04:16 Dohle Bodies Not Reportable 06/05/17 04:16 Pelger-Huet Anomaly Not Reportable 06/05/17 04:16 Ant Rods Not Reportable 06/05/17 04:16 Platelet Estimate Consistent w auto 06/05/17 04:16 Clumped Platelets Not Reportable 06/05/17 04:16 Plt Clumps, EDTA Not Reportable 06/05/17 04:16 Large Platelets Not Reportable 06/05/17 04:16 Giant Platelets Not Reportable 06/05/17 04:16 Platelet Satelliting Not Reportable 06/05/17 04:16 Plt Morphology Comment Not Reportable 06/05/17 04:16 RBC Morphology Normal 06/05/17 04:16 Dimorphic RBCs Not Reportable 06/05/17 04:16 Polychromasia Not Reportable 06/05/17 04:16 Hypochromasia Not Reportable 06/05/17 04:16 Poikilocytosis Not Reportable 06/05/17 04:16 Anisocytosis Not Reportable 06/05/17 04:16 Microcytosis Not Reportable 06/05/17 04:16 Macrocytosis Not Reportable 06/05/17 04:16 Spherocytes Not Reportable 06/05/17 04:16 Pappenheimer Bodies Not Reportable 06/05/17 04:16 Sickle Cells Not Reportable 06/05/17 04:16 Target Cells Not Reportable 06/05/17 04:16 Tear Drop Cells Not Reportable 06/05/17 04:16 Ovalocytes Not Reportable 06/05/17 04:16 Helmet Cells Not Reportable 06/05/17 04:16 [place] Bodies Not Reportable 06/05/17 04:16 [place] Rings Not Reportable 06/05/17 04:16 [place] Cells Not Reportable 06/05/17 04:16 Bite Cells Not Reportable 06/05/17 04:16 Crenated Cell Not Reportable 06/05/17 04:16 Elliptocytes Not Reportable 06/05/17 04:16 Acanthocytes (Spur) Not Reportable 06/05/17 04:16 Rouleaux Not Reportable 06/05/17 04:16 Hemoglobin C Crystals Not Reportable 06/05/17 04:16 Schistocytes Not Reportable 06/05/17 04:16 Malaria parasites Not Reportable 06/05/17 04:16 Jaya Bodies Not Reportable 06/05/17 04:16 Hem Pathologist Commnt No 06/05/17 04:16 POC ABG pH 7.402 (7.35-7.45) 06/04/17 21:10 POC ABG pCO2 34.6 (35-45) L 06/04/17 21:10 POC ABG pO2 49 (80-105) L 06/04/17 21:10 POC ABG HCO3 21.5 06/04/17 21:10 POC ABG Total CO2 23 06/04/17 21:10 POC ABG O2 Sat 85 06/04/17 21:10 POC ABG Base Excess -3 06/04/17 21:10 FiO2 21 % 06/04/17 21:10 Sodium 137 mmol/L (137-145) 06/05/17 04:16 Potassium 4.1 mmol/L (3.6-5.0) 06/05/17 04:16 Chloride 100.0 mmol/L (98-107) 06/05/17 04:16 Carbon Dioxide 21 mmol/L (22-30) L 06/05/17 04:16 Anion Gap 20 mmol/L 06/05/17 04:16 BUN 23 mg/dL (7-17) H 06/05/17 04:16 Creatinine 0.7 mg/dL (0.7-1.2) 06/05/17 04:16 Estimated GFR > 60 ml/min 06/05/17 04:16 BUN/Creatinine Ratio 32.85 % 06/05/17 04:16 Glucose 145 mg/dL (65-100) H 06/05/17 04:16 Calcium 8.8 mg/dL (8.4-10.2) 06/05/17 04:16 Total Bilirubin 0.90 mg/dL (0.1-1.2) 06/04/17 20:18 AST 53 units/L (5-40) H 06/04/17 20:18 ALT 30 units/L (7-56) 06/04/17 20:18 Alkaline Phosphatase 86 units/L (35-129) 06/04/17 20:18 Total Protein 7.8 g/dL (6.3-8.2) 06/04/17 20:18 Albumin 4.4 g/dL (3.9-5) 06/04/17 20:18 Albumin/Globulin Ratio 1.3 % 06/04/17 20:18 Hepatitis A IgM Ab Non-reactive (NonReactive) 06/05/17 14:00 Hep Bs Antigen Reactive (Negative) 06/05/17 14:00 Hep B Core IgM Ab Non-reactive (NonReactive) 06/05/17 14:00 Hepatitis C Antibody Non-reactive (NonReactive) 06/05/17 14:00
[2017-06-06] MEDS: ZITHROMAX 500 MG in NACL 0.9% 250ML 250 ML IV SCH (10:02)
[2017-06-06] MEDS: LOVENOX SUB-Q SCH (10:02)
[2017-06-06] MEDS ORDERED: PNEUMOVAX 23 IM ONE (12:00)
[2017-06-06] MEDS ORDERED: PERCOCET 5/325 PO ONE (19:30)
[2017-06-06] MEDS: XOPENEX IH PRN (20:09)
[2017-06-07] MEDS: XOPENEX IH SCH ×3 (00:05→16:28)
[2017-06-07] MEDS ORDERED: PERCOCET 5/325 PO PRN (03:31)
[2017-06-07 04:58] LABS: Hematocrit 39.6 % (30.3-42.9); Hemoglobin 12.7 gm/dl (10.1-14.3); Mean Corpuscular HGB Conc 32 % (30-34); Mean Corpuscular Hemoglobin 28 pg (28-32); Mean Corpuscular Volume 87 fl (79-97); Platelet Count 258 K/mm3 (140-440); Red Blood Count 4.57 M/mm3 (3.65-5.03); Red Cell Distribution Width 16.4 % (13.2-15.2)
[2017-06-07 05:03] LABS: White Blood Count 30.9 K/mm3 (4.5-11.0)
[2017-06-07 05:23] LABS: Anion Gap 17 mmol/L; BUN/Creatinine Ratio 36.25; Blood Urea Nitrogen 29 mg/dL (7-17); Calcium 8.9 mg/dL (8.4-10.2); Carbon Dioxide 25 mmol/L (22-30); Chloride 98.9 mmol/L (98-107); Glucose 135 mg/dL (65-100); Potassium 4.3 mmol/L (3.6-5.0); Sodium 137 mmol/L (137-145)
[2017-06-07] MEDS: XOPENEX IH PRN (05:39)
[2017-06-07 05:57] LABS: Basophils % (Manual) 0 % (0.0-1.8); Blastocytes % (Manual) 0 %; Diff Status Complete; Eosinophils % (Manual) 0 % (0.0-4.3); Platelet Estimate Consistent w Auto; RBC Morphology Normal
[2017-06-07] MEDS: ATROVENT IH SCH ×4 (07:39→16:28)
[2017-06-07 08:29] VITALS: BP 150/101
--- NOTE | 2017-06-07 09:21 | Progress Note ---
Hospitalist Physical - Constitutional Vitals: Temp Pulse Resp BP Pulse Ox 98.7 F 98 H 18 150/101 99 06/07/17 08:28 06/07/17 08:28 06/07/17 08:28 06/07/17 08:28 06/07/17 08:28 General appearance: Present: no acute distress Results - Labs CBC & Chem 7: 06/07/17 04:20 06/07/17 04:20 Labs: Laboratory Last Values WBC 30.9 K/mm3 (4.5-11.0) H 06/07/17 04:20 RBC 4.57 M/mm3 (3.65-5.03) 06/07/17 04:20 Hgb 12.7 gm/dl (10.1-14.3) 06/07/17 04:20 Hct 39.6 % (30.3-42.9) 06/07/17 04:20 MCV 87 fl (79-97) 06/07/17 04:20 MCH 28 pg (28-32) 06/07/17 04:20 MCHC 32 % (30-34) 06/07/17 04:20 RDW 16.4 % (13.2-15.2) H 06/07/17 04:20 Plt Count 258 K/mm3 (140-440) 06/07/17 04:20 Add Manual Diff Complete 06/07/17 04:20 Total Counted 100 06/07/17 04:20 Seg Neutrophils % Blanket Weaver 06/07/17 04:20 Seg Neuts % (Manual) 87.0 % (40.0-70.0) H 06/07/17 04:20 Band Neutrophils % 0 % 06/07/17 04:20 Lymphocytes % (Manual) 8.0 % (13.4-35.0) L 06/07/17 04:20 Reactive Lymphs % (Man) 0 % 06/07/17 04:20 Monocytes % (Manual) 5.0 % (0.0-7.3) 06/07/17 04:20 Eosinophils % (Manual) 0 % (0.0-4.3) 06/07/17 04:20 Basophils % (Manual) 0 % (0.0-1.8) 06/07/17 04:20 Metamyelocytes % 0 % 06/07/17 04:20 Myelocytes % 0 % 06/07/17 04:20 Promyelocytes % 0 % 06/07/17 04:20 Blast Cells % 0 % 06/07/17 04:20 Nucleated RBC % Not Reportable 06/07/17 04:20 Seg Neutrophils # Man 26.9 K/mm3 (1.8-7.7) H 06/07/17 04:20 Band Neutrophils # 0.0 K/mm3 06/07/17 04:20 Lymphocytes # (Manual) 2.5 K/mm3 (1.2-5.4) 06/07/17 04:20 Abs React Lymphs (Man) 0.0 K/mm3 06/07/17 04:20 Monocytes # (Manual) 1.5 K/mm3 (0.0-0.8) H 06/07/17 04:20 Eosinophils # (Manual) 0.0 K/mm3 (0.0-0.4) 06/07/17 04:20 Basophils # (Manual) 0.0 K/mm3 (0.0-0.1) 06/07/17 04:20 Metamyelocytes # 0.0 K/mm3 06/07/17 04:20 Myelocytes # 0.0 K/mm3 06/07/17 04:20 Promyelocytes # 0.0 K/mm3 06/07/17 04:20 Blast Cells # 0.0 K/mm3 06/07/17 04:20 WBC Morphology Not Reportable 06/07/17 04:20 Hypersegmented Neuts Not Reportable 06/07/17 04:20 Hyposegmented Neuts Not Reportable 06/07/17 04:20 Hypogranular Neuts Not Reportable 06/07/17 04:20 Smudge Cells Not Reportable 06/07/17 04:20 Toxic Granulation Not Reportable 06/07/17 04:20 Toxic Vacuolation Not Reportable 06/07/17 04:20 Dohle Bodies Not Reportable 06/07/17 04:20 Pelger-Huet Anomaly Not Reportable 06/07/17 04:20 Ant Rods Not Reportable 06/07/17 04:20 Platelet Estimate Consistent w auto 06/07/17 04:20 Clumped Platelets Not Reportable 06/07/17 04:20 Plt Clumps, EDTA Not Reportable 06/07/17 04:20 Large Platelets Not Reportable 06/07/17 04:20 Giant Platelets Not Reportable 06/07/17 04:20 Platelet Satelliting Not Reportable 06/07/17 04:20 Plt Morphology Comment Not Reportable 06/07/17 04:20 RBC Morphology Normal 06/07/17 04:20 Dimorphic RBCs Not Reportable 06/07/17 04:20 Polychromasia Not Reportable 06/07/17 04:20 Hypochromasia Not Reportable 06/07/17 04:20 Poikilocytosis Not Reportable 06/07/17 04:20 Anisocytosis Not Reportable 06/07/17 04:20 Microcytosis Not Reportable 06/07/17 04:20 Macrocytosis Not Reportable 06/07/17 04:20 Spherocytes Not Reportable 06/07/17 04:20 Pappenheimer Bodies Not Reportable 06/07/17 04:20 Sickle Cells Not Reportable 06/07/17 04:20 Target Cells Not Reportable 06/07/17 04:20 Tear Drop Cells Not Reportable 06/07/17 04:20 Ovalocytes Not Reportable 06/07/17 04:20 Helmet Cells Not Reportable 06/07/17 04:20 [place] Bodies Not Reportable 06/07/17 04:20 [place] Rings Not Reportable 06/07/17 04:20 [place] Cells Not Reportable 06/07/17 04:20 Bite Cells Not Reportable 06/07/17 04:20 Crenated Cell Not Reportable 06/07/17 04:20 Elliptocytes Not Reportable 06/07/17 04:20 Acanthocytes (Spur) Not Reportable 06/07/17 04:20 Rouleaux Not Reportable 06/07/17 04:20 Hemoglobin C Crystals Not Reportable 06/07/17 04:20 Schistocytes Not Reportable 06/07/17 04:20 Malaria parasites Not Reportable 06/07/17 04:20 Jaya Bodies Not Reportable 06/07/17 04:20 Hem Pathologist Commnt No 06/07/17 04:20 POC ABG pH 7.402 (7.35-7.45) 06/04/17 21:10 POC ABG pCO2 34.6 (35-45) L 06/04/17 21:10 POC ABG pO2 49 (80-105) L 06/04/17 21:10 POC ABG HCO3 21.5 06/04/17 21:10 POC ABG Total CO2 23 06/04/17 21:10 POC ABG O2 Sat 85 06/04/17 21:10 POC ABG Base Excess -3 06/04/17 21:10 FiO2 21 % 06/04/17 21:10 Sodium 137 mmol/L (137-145) 06/07/17 04:20 Potassium 4.3 mmol/L (3.6-5.0) 06/07/17 04:20 Chloride 98.9 mmol/L (98-107) 06/07/17 04:20 Carbon Dioxide 25 mmol/L (22-30) 06/07/17 04:20 Anion Gap 17 mmol/L 06/07/17 04:20 BUN 29 mg/dL (7-17) H 06/07/17 04:20 Creatinine 0.8 mg/dL (0.7-1.2) 06/07/17 04:20 Estimated GFR > 60 ml/min 06/07/17 04:20 BUN/Creatinine Ratio 36.25 % 06/07/17 04:20 Glucose 135 mg/dL (65-100) H 06/07/17 04:20 Calcium 8.9 mg/dL (8.4-10.2) 06/07/17 04:20 Total Bilirubin 0.90 mg/dL (0.1-1.2) 06/04/17 20:18 AST 53 units/L (5-40) H 06/04/17 20:18 ALT 30 units/L (7-56) 06/04/17 20:18 Alkaline Phosphatase 86 units/L (35-129) 06/04/17 20:18 Total Protein 7.8 g/dL (6.3-8.2) 06/04/17 20:18 Albumin 4.4 g/dL (3.9-5) 06/04/17 20:18 Albumin/Globulin Ratio 1.3 % 06/04/17 20:18 Hepatitis A IgM Ab Non-reactive (NonReactive) 06/05/17 14:00 Hep Bs Antigen Reactive (Negative) 06/05/17 14:00 Hep B Core IgM Ab Non-reactive (NonReactive) 06/05/17 14:00 Hepatitis C Antibody Non-reactive (NonReactive) 06/05/17 14:00
[2017-06-07] MEDS: ZITHROMAX 500 MG in NACL 0.9% 250ML 250 ML IV SCH (10:14)
[2017-06-07] MEDS: LOVENOX SUB-Q SCH (10:14)
--- NOTE | 2017-06-07 11:10 | Discharge Summary ---
Providers - Providers Date of Admission: 06/04/17 22:45 Date of discharge: 06/07/17 Attending physician: ALEXY FIERRO Primary care physician: MAIL EXAMINER Hospitalization Condition: Stable Hospital course: Patient is a 31 years old female with a history of asthma comes emergency room with complaints of shortness of breath. Yesterday she states that she developed cold, cough productive of green phlegm. Her shortness of breath worsened not relieved with her nebulizer treatments at home. She was diagnosed with Acute on chronic hypoxic respiratory failure, Asthma exacerbation, Acute bronchitis and Steroid-induced leukocytosis. Chest Xray WNL. She was treated with supplemental oxygen, aggressive nebulizer therapy , IV steroids and IV antibiotics. Patient completed a full course of antibiotic. She is being discharged on oral antibiotic. Also D/C with oral steroid taper upon discharge. Also Ongoing tobacco use smoking cessation counseling done patient strongly advised to quit. Patient agreed upon course of action. Patient clinically improved and stable for discharge. Patient was advised to follow up with her primary care. Discharge Diagnosed Acute on chronic hypoxic respiratory failure Asthma exacerbation Acute bronchitis Steroid-induced leukocytosis, Core Measure Documentation - Palliative Care Palliative Care/ Comfort Measures: Not Applicable - Core Measures Any of the following diagnoses?: none Exam - Constitutional Vitals: Temp Pulse Resp BP Pulse Ox 98.7 F 98 H 18 150/101 99 06/07/17 08:28 06/07/17 08:28 06/07/17 08:28 06/07/17 08:28 06/07/17 08:28 - EENT Eyes: Present: PERRL ENT: hearing intact - Neck Neck: Present: supple - Respiratory Respiratory effort: normal Respiratory: bilateral: wheezing (mild clinically optimized) - Cardiovascular Heart rate: 101 Rhythm: regular Heart Sounds: Present: S1 & S2 - Extremities Extremities: no ischemia Peripheral Pulses: within normal limits - Abdominal General gastrointestinal: Present: soft, non-tender Female genitourinary: Present: deferred - Rectal Rectal Exam: deferred - Integumentary Integumentary: Present: clear, warm, dry - Musculoskeletal Musculoskeletal: strength equal bilaterally - Psychiatric Psychiatric: appropriate mood/affect - Neurologic Neurologic: CNII-XII intact Plan Activity: no restrictions Weight Bearing Status: Weight Bear as Tolerated Diet: regular Follow up with: PRIMARY CARE, [Primary Care Provider] - 3-5 Days Prescriptions: ALBUTEROL Inhaler [ProAir HFA Inhaler] 1 puff INHALATION BID PRN #1 inha PRN Reason: Wheezing ALBUTEROL NEB's [Proventil 0.083% NEBS] 2.5 mg IH TID PRN #25 neb PRN Reason: Wheezing Azithromycin [Zithromax Z-JAZMIN] 250 mg PO DAILY #1 pkg Prednisone [predniSONE 10 mg (6-Day Pack, 21 Tabs)] 10 mg PO .TAPER #1 tab.ds.pk
[2017-06-07] MEDS ORDERED: Fluarix Quad 2017-2018(36 MOS+) IM ONE (12:00)
== END 2017-06-07 18:45 | disposition home or self-care (01) | DRG 189 ==
LOC: ED 17:04 → 3A 22:45
PROVIDERS: ADMIT Internal Medicine; ATTEND Hospitalist
DX: J96.21 Acute and chronic respiratory failure with hypoxia (principal); J45.51 Severe persistent asthma with (acute) exacerbation; D72.828 Other elevated white blood cell count; T38.0X5A Adverse effect of glucocorticoids and synthetic analogues, initial encounter; J20.9 Acute bronchitis, unspecified; F17.200 Nicotine dependence, unspecified, uncomplicated; Y92.89 Other specified places as the place of occurrence of the external cause; Z71.6 Tobacco abuse counseling
CPT/HCPCS: 36415; 71010; 80048; 80053; 80074; 82803; 85007; 85025; 90686; 90732; 94640; 94760; 96374; 96375; J0456; J1650; J2930; J3475; J7030; J7050

== ENCOUNTER 2017-07-28 01:05 | Emergency (ER) | payer SELFPAY ==
[2017-07-28 01:34] LABS: Basophils % (Auto) 0.3 % (0.0-1.8); Eosinophils % (Auto) 2.2 % (0.0-4.3); Hematocrit 42.6 % (30.3-42.9); Hemoglobin 14.4 gm/dl (10.1-14.3); Mean Corpuscular HGB Conc 34 % (30-34); Mean Corpuscular Hemoglobin 29 pg (28-32); Mean Corpuscular Volume 87 fl (79-97); Platelet Count 191 K/mm3 (140-440); Red Blood Count 4.91 M/mm3 (3.65-5.03); Red Cell Distribution Width 16.7 % (13.2-15.2); White Blood Count 9.7 K/mm3 (4.5-11.0)
[2017-07-28 01:51] LABS: Anion Gap 17 mmol/L; BUN/Creatinine Ratio 19; Blood Urea Nitrogen 13 mg/dL (7-17); Calcium 9.1 mg/dL (8.4-10.2); Carbon Dioxide 24 mmol/L (22-30); Chloride 96.5 mmol/L (98-107); Glucose 85 mg/dL (65-100); Potassium 3.9 mmol/L (3.6-5.0); Sodium 134 mmol/L (137-145)
[2017-07-28 02:51] LABS: Bilirubin,Urine NEG (Negative)
[2017-07-28 02:52] LABS: Blood,Urine SM (Negative); Ketones,Urine NEG (Negative); Leukocyte Esterase,Urine NEG (Negative); Nitrite,Urine NEG (Negative); Protein,Urine <15 mg/dL mg/dL (Negative); Urobilinogen,Urine < 2.0 mg/dL (<2.0)
[2017-07-28] MEDS ORDERED: PROVENTIL IH ONE (02:52)
[2017-07-28] MEDS ORDERED: DELTASONE PO ONE (04:14)
[2017-07-28] MEDS ORDERED: DELTASONE ONE (04:14)
--- NOTE | 2017-07-28 10:20 | Emergency Department Report ---
ED General Adult HPI - General Chief complaint: Nausea/Vomiting/Diarrhea Stated complaint: ASHLEE Time Seen by Provider: 07/28/17 10:16 Source: patient Mode of arrival: Ambulatory Limitations: No Limitations - History of Present Illness Initial comments: The patient states that she presented to the emergency department because her home nebulizer was not working and she had persistent wheezing. She received a nebulizer treatment and 60 mg of prednisone prior to my arrival. She was found to be hypertensive. I repeated her blood pressure and it was essentially similar to the initial (150/100 approximately when I retook it). Patient states that she has minimal residual wheezing but is otherwise ready to go home. She has sever ID of other symptoms such as nausea and diarrhea. She feels like she is having a flu. She has 6 children at home. She's been taking TheraFlu and NyQuil. She has been here already for several hours. -: Gradual, days(s) Location: lower extremity (bites lower extremity) Radiation: non-radiation Quality: other (itching) Consistency: intermittent Improves with: none Worsens with: none Associated Symptoms: denies other symptoms (multiple symptoms as above described no significant pain) - Related Data Previous Rx's Medication Instructions Recorded Last Taken Type Albuterol Sulfate [Proventil HFA] 1 - 2 puff IH Q4H PRN #1 hfa.aer.ad 09/03/14 1 Day Ago Rx metroNIDAZOLE [Flagyl] 500 mg PO BID #14 tablet 01/12/15 Unknown Rx metroNIDAZOLE [Flagyl] 500 mg PO BID #14 tablet 02/08/15 Unknown Rx Acetaminophen/Codeine [Tylenol #3] 1 tab PO Q6H PRN #20 tab 06/12/15 Unknown Rx Ibuprofen [Motrin] 600 mg PO Q8H PRN #40 tablet 06/12/15 Unknown Rx metroNIDAZOLE [Flagyl TAB] 500 mg PO Q12HR #20 tab 06/12/15 Unknown Rx Loratadine [Claritin] 10 mg PO DAILY #30 tablet 12/17/15 Unknown Rx Cetirizine HCl [ZyrTEC] 10 mg PO DAILY #10 tab.rapdis 05/23/17 Unknown Rx Fluticasone [Flonase] 2 spray NS QDAY #1 bottle 05/23/17 Unknown Rx Tobramycin 0.3% [Tobrex] 1 drop OU Q4HR #1 bottle 05/23/17 Unknown Rx ALBUTEROL Inhaler [ProAir HFA 1 puff INHALATION BID PRN #1 inha 06/07/17 Unknown Rx Inhaler] ALBUTEROL NEB's [Proventil 0.083% 2.5 mg IH TID PRN #25 neb 06/07/17 Unknown Rx NEBS] Azithromycin [Zithromax Z-JAZMIN] 250 mg PO DAILY #1 pkg 06/07/17 Unknown Rx Prednisone [predniSONE 10 mg 10 mg PO .TAPER #1 tab.ds.pk 06/07/17 Unknown Rx (6-Day Pack, 21 Tabs)] ALBUTEROL Inhaler [ProAir HFA 2 puff IH QID PRN #1 inhalation 07/28/17 Unknown Rx Inhaler] Lindane 1% [Kwell 1%] 1 applicatio TP NOW #1 bottle 07/28/17 Unknown Rx amLODIPine [Norvasc] 5 mg PO DAILY #30 tab 07/28/17 Unknown Rx predniSONE [Deltasone] 40 mg PO QDAY #10 tab 07/28/17 Unknown Rx Allergies Allergy/AdvReac Type Severity Reaction Status Date / Time latex Allergy Rash Verified 12/17/15 09:19 Penicillins Allergy Hives Verified 12/17/15 09:19 ED Review of Systems ROS: Stated complaint: ASHLEE Other details as noted in HPI Constitutional: denies: chills, fever Eyes: denies: eye pain, eye discharge, vision change ENT: denies: ear pain, throat pain Respiratory: wheezing. denies: cough (no significant cough) Cardiovascular: denies: chest pain, palpitations Endocrine: no symptoms reported Gastrointestinal: nausea, diarrhea. denies: abdominal pain Genitourinary: denies: urgency, dysuria, discharge Musculoskeletal: denies: back pain, joint swelling, arthralgia Skin: as per HPI, other (bites lower extremities). denies: rash, lesions Neurological: denies: headache, weakness, paresthesias Psychiatric: denies: anxiety, depression Hematological/Lymphatic: denies: easy bleeding, easy bruising ED Past Medical Hx - Past Medical History Previous Medical History?: Yes Hx Asthma: Yes Hx HIV: No - Surgical History Past Surgical History?: No - Social History Smoking Status: Never Smoker Substance Use Type: Alcohol - Medications Home Medications: Home Medications Medication Instructions Recorded Confirmed Last Taken Type Albuterol Sulfate [Proventil HFA] 1 - 2 puff IH Q4H PRN #1 hfa.aer.ad 09/03/14 01/11/15 1 Day Ago Rx metroNIDAZOLE [Flagyl] 500 mg PO BID #14 tablet 01/12/15 Unknown Rx metroNIDAZOLE [Flagyl] 500 mg PO BID #14 tablet 02/08/15 Unknown Rx Acetaminophen/Codeine [Tylenol #3] 1 tab PO Q6H PRN #20 tab 06/12/15 Unknown Rx Ibuprofen [Motrin] 600 mg PO Q8H PRN #40 tablet 06/12/15 Unknown Rx metroNIDAZOLE [Flagyl TAB] 500 mg PO Q12HR #20 tab 06/12/15 Unknown Rx Loratadine [Claritin] 10 mg PO DAILY #30 tablet 12/17/15 Unknown Rx Cetirizine HCl [ZyrTEC] 10 mg PO DAILY #10 tab.rapdis 05/23/17 Unknown Rx Fluticasone [Flonase] 2 spray NS QDAY #1 bottle 05/23/17 Unknown Rx Tobramycin 0.3% [Tobrex] 1 drop OU Q4HR #1 bottle 05/23/17 Unknown Rx ALBUTEROL Inhaler [ProAir HFA 1 puff INHALATION BID PRN #1 inha 06/07/17 Unknown Rx Inhaler] ALBUTEROL NEB's [Proventil 0.083% 2.5 mg IH TID PRN #25 neb 06/07/17 Unknown Rx NEBS] Azithromycin [Zithromax Z-JAZMIN] 250 mg PO DAILY #1 pkg 06/07/17 Unknown Rx Prednisone [predniSONE 10 mg 10 mg PO .TAPER #1 tab.ds.pk 06/07/17 Unknown Rx (6-Day Pack, 21 Tabs)] ALBUTEROL Inhaler [ProAir HFA 2 puff IH QID PRN #1 inhalation 07/28/17 Unknown Rx Inhaler] Lindane 1% [Kwell 1%] 1 applicatio TP NOW #1 bottle 07/28/17 Unknown Rx amLODIPine [Norvasc] 5 mg PO DAILY #30 tab 07/28/17 Unknown Rx predniSONE [Deltasone] 40 mg PO QDAY #10 tab 07/28/17 Unknown Rx ED Physical Exam - General Limitations: No Limitations General appearance: alert, in no apparent distress - Head Head exam: Present: atraumatic, normocephalic - Eye Eye exam: Present: normal appearance. Absent: scleral icterus - ENT ENT exam: Present: mucous membranes moist - Neck Neck exam: Present: normal inspection - Respiratory Respiratory exam: Present: wheezes (slight end expiratory wheeze). Absent: respiratory distress - Cardiovascular Cardiovascular Exam: Present: regular rate, normal rhythm. Absent: systolic murmur, diastolic murmur, rubs, gallop - GI/Abdominal GI/Abdominal exam: Present: soft, normal bowel sounds. Absent: distended, tenderness, guarding, rebound, rigid - Extremities Exam Extremities exam: Present: normal inspection (except for bug bites) - Back Exam Back exam: Present: normal inspection - Neurological Exam Neurological exam: Present: alert, oriented X3, CN II-XII intact. Absent: motor sensory deficit - Psychiatric Psychiatric exam: Present: normal affect, normal mood - Skin Skin exam: Present: warm, dry, normal color, other (there are multiple bites on both feet extending to the area above the ankle). Absent: rash ED Course Vital Signs 07/28/17 07/28/17 07/28/17 01:14 10:43 10:48 Temperature 99 F Pulse Rate 102 H Pulse Rate [ 85 88 Bilateral Upper Lobe] Respiratory 18 Rate Respiratory 18 18 Rate [Bilateral Upper Lobe] Blood Pressure 162/109 O2 Sat by Pulse 98 Oximetry - Reevaluation(s) Reevaluation #1: It is uncertain as to the cause of the patient's bug bites. I'm going to give her a course of Kwell. She needs to obviously wash her sheets and eliminate the possibility of fleas or bed bugs. 07/28/17 10:58 ED Medical Decision Making - Lab Data Result diagrams: 07/28/17 01:20 07/28/17 01:20 Laboratory Results - last 24 hr 07/28/17 07/28/17 07/28/17 01:20 01:20 02:18 WBC 9.7 RBC 4.91 Hgb 14.4 H Hct 42.6 MCV 87 MCH 29 MCHC 34 RDW 16.7 H Plt Count 191 Lymph % (Auto) 10.8 L Starr % (Auto) 11.7 H Eos % (Auto) 2.2 Baso % (Auto) 0.3 Lymph # 1.0 L Starr # 1.1 H Eos # 0.2 Baso # 0.0 Seg Neutrophils % 75.0 H Seg Neutrophils # 7.3 Sodium 134 L Potassium 3.9 Chloride 96.5 L Carbon Dioxide 24 Anion Gap 17 BUN 13 Creatinine 0.7 Estimated GFR > 60 BUN/Creatinine Ratio 19 Glucose 85 Calcium 9.1 Urine Color Yellow Urine Turbidity Clear Urine pH 7.0 Ur Specific Otis 1.017 Urine Protein <15 mg/dl Urine Glucose (UA) Neg Urine Ketones Neg Urine Blood Sm Urine Nitrite Neg Ur Reducing Substances Not Reportable Urine Bilirubin Neg Urine Ictotest Not Reportable Urine Urobilinogen < 2.0 Ur Leukocyte Esterase Neg Urine WBC (Auto) 3.0 Urine RBC (Auto) 3.0 U Epithel Cells (Auto) 12.0 Critical care attestation.: If time is entered above; I have spent that time in minutes in the direct care of this critically ill patient, excluding procedure time. ED Disposition Clinical Impression: Viral illness Acute asthma exacerbation Qualifiers: Asthma severity: moderate Asthma persistence: unspecified Qualified Code(s): J45.901 - Unspecified asthma with (acute) exacerbation Insect bites Qualifiers: Encounter type: initial encounter Qualified Code(s): W57.XXXA - Bitten or stung by nonvenomous insect and other nonvenomous arthropods, initial encounter Disposition: DC- TO HOME OR SELFCARE Is pt being admited?: No Does the pt Need Aspirin: No Condition: Stable Instructions: Asthma (ED), Hypertension (ED) Additional Instructions: I would recommend one treatment with Kwell for possible scabies. These may actually be fleas or other insects. I would recommend an silk screen printer machine and watching your sheets in hot water, etc. Rx as directed for your asthma exacerbation and elevated blood pressure. Follow-up on these problems with the primary care provider, [facility] and [facility]. Apply the Kwell cream and allow overnight. Shower in the morning. Prescriptions: ALBUTEROL Inhaler [ProAir HFA Inhaler] 2 puff IH QID PRN #1 inhalation PRN Reason: Shortness Of Breath amLODIPine [Norvasc] 5 mg PO DAILY #30 tab Lindane 1% [Kwell 1%] 1 applicatio TP NOW #1 bottle predniSONE [Deltasone] 40 mg PO QDAY #10 tab Referrals: PRIMARY CARE, [Primary Care Provider] - 3-5 Days [facility] [Provider Group] - 3-5 Days [facility] [Outside] - 3-5 Days Time of Disposition: 11:02
[2017-07-28] MEDS ORDERED: DUONEB *Not for PRN Use IH ONE (10:37)
[2017-07-28 10:55] VITALS: BP 160/98
== END 2017-07-28 11:30 | disposition home or self-care (01) ==
LOC: ED 01:05
DX: J45.901 Unspecified asthma with (acute) exacerbation (principal); B34.9 Viral infection, unspecified; S80.862A Insect bite (nonvenomous), left lower leg, initial encounter; S80.861A Insect bite (nonvenomous), right lower leg, initial encounter; Z88.0 Allergy status to penicillin; Z91.040 Latex allergy status; W57.XXXA Bitten or stung by nonvenomous insect and other nonvenomous arthropods, initial encounter; Y93.89 Activity, other specified; Y92.89 Other specified places as the place of occurrence of the external cause; Y99.8 Other external cause status
CPT/HCPCS: 36415; 80048; 81001; 81025; 85025; 94640; 99283; J7512

== ENCOUNTER 2018-01-09 09:55 | Emergency (ER) | payer SELFPAY ==
[2018-01-09 10:04] VITALS: BP 170/111
[2018-01-09 10:30] LABS: Basophils # (Auto) 0.1 K/mm3 (0.0-0.1); Basophils % (Auto) 0.6 % (0.0-1.8); Eosinophils # (Auto) 0.3 K/mm3 (0.0-0.4); Eosinophils % (Auto) 2.6 % (0.0-4.3); Hematocrit 44.7 % (30.3-42.9); Hemoglobin 14.8 gm/dl (10.1-14.3); Lymphocytes # (Auto) 3.2 K/mm3 (1.2-5.4); Lymphocytes % (Auto) 32.8 % (13.4-35.0); Mean Corpuscular HGB Conc 33 % (30-34); Mean Corpuscular Hemoglobin 29 pg (28-32); Mean Corpuscular Volume 86 fl (79-97); Monocytes # (Auto) 0.9 K/mm3 (0.0-0.8); Monocytes % (Auto) 8.9 % (0.0-7.3); Platelet Count 210 K/mm3 (140-440); Red Blood Count 5.22 M/mm3 (3.65-5.03); Red Cell Distribution Width 16.6 % (13.2-15.2)
[2018-01-09 10:44] LABS: Alanine Aminotransferase 40 units/L (7-56); Albumin 4.3 g/dL (3.9-5); BUN/Creatinine Ratio 27; Blood Urea Nitrogen 16 mg/dL (7-17); Hemolysis Index 8; Lipase 30 units/L (13-60)
[2018-01-09 11:22] LABS: HCG Qualitative,Urine Negative (Negative)
[2018-01-09 11:23] LABS: Bacteria,Urine 1+ /HPF (Negative); Bilirubin,Urine NEG (Negative); Blood,Urine SM (Negative); Color,Urine Yellow (Yellow); Mucus,Urine 1+ /HPF; Protein,Urine <15 mg/dL mg/dL (Negative); Urobilinogen,Urine < 2.0 mg/dL (<2.0)
--- NOTE | 2018-01-09 12:02 | Emergency Department Report ---
ED Abdominal Pain HPI - General Chief Complaint: Nausea/Vomiting/Diarrhea Stated Complaint: DIARRHEA Time Seen by Provider: 01/09/18 11:52 Source: patient Mode of arrival: Ambulatory Limitations: No Limitations - History of Present Illness Initial Comments: Patient is on his old female with no significant positive medical history presented to the ER complaining of diffuse abdominal pain and cramping and alternating constipation and diarrhea for the last 2 months. Patient denied any weight loss, fever, cough, chest pain or other symptoms. MD Complaint: abdominal pain -: month(s) Location: diffuse Radiation: none Migration to: no migration Quality: cramping Consistency: intermittent Associated Symptoms: diarrhea, constipation - Related Data Home Medications Medication Instructions Recorded Confirmed Last Taken Cetirizine HCl [Zyrtec] 10 mg PO DAILY 07/28/17 07/28/17 07/28/17 predniSONE [Deltasone] 3 tab PO DAILY 07/28/17 07/28/17 07/28/17 Previous Rx's Medication Instructions Recorded Last Taken Type ALBUTEROL NEB's [Proventil 0.083% 2.5 mg IH TID PRN #25 neb 06/07/17 07/28/17 Rx NEBS] ALBUTEROL Inhaler [ProAir HFA 2 puff IH QID PRN #1 inhalation 07/28/17 Unknown Rx Inhaler] Lindane 1% [Kwell 1%] 1 applicatio TP NOW #1 bottle 07/28/17 Unknown Rx amLODIPine [Norvasc] 5 mg PO DAILY #30 tab 07/28/17 Unknown Rx predniSONE [Deltasone] 40 mg PO QDAY #10 tab 07/28/17 Unknown Rx Allergies Allergy/AdvReac Type Severity Reaction Status Date / Time latex Allergy Rash Verified 12/17/15 09:19 Penicillins Allergy Hives Verified 12/17/15 09:19 ED Review of Systems ROS: Stated complaint: DIARRHEA Other details as noted in HPI Comment: All other systems reviewed and negative Constitutional: denies: chills, fever Respiratory: denies: cough, orthopnea, shortness of breath, SOB with exertion, SOB at rest Cardiovascular: denies: chest pain, palpitations, dyspnea on exertion Gastrointestinal: abdominal pain, diarrhea, constipation. denies: nausea, vomiting Neurological: denies: headache, weakness, numbness ED Past Medical Hx - Past Medical History Previous Medical History?: Yes Hx Hypertension: Yes (noncompliant with meds) Hx Asthma: Yes Hx HIV: No - Surgical History Past Surgical History?: No - Social History Smoking Status: Never Smoker Substance Use Type: Alcohol, Marijuana - Medications Home Medications: Home Medications Medication Instructions Recorded Confirmed Last Taken Type ALBUTEROL NEB's [Proventil 0.083% 2.5 mg IH TID PRN #25 neb 06/07/17 07/28/17 Rx NEBS] ALBUTEROL Inhaler [ProAir HFA 2 puff IH QID PRN #1 inhalation 07/28/17 Unknown Rx Inhaler] Cetirizine HCl [Zyrtec] 10 mg PO DAILY 07/28/17 07/28/17 07/28/17 History Lindane 1% [Kwell 1%] 1 applicatio TP NOW #1 bottle 07/28/17 Unknown Rx amLODIPine [Norvasc] 5 mg PO DAILY #30 tab 07/28/17 Unknown Rx predniSONE [Deltasone] 3 tab PO DAILY 07/28/17 07/28/17 07/28/17 History predniSONE [Deltasone] 40 mg PO QDAY #10 tab 07/28/17 Unknown Rx ED Physical Exam - General Limitations: No Limitations General appearance: alert, in no apparent distress - Head Head exam: Present: atraumatic, normocephalic, normal inspection - Eye Eye exam: Present: normal appearance, PERRL - ENT ENT exam: Present: normal exam, normal orophraynx, mucous membranes moist - Neck Neck exam: Present: normal inspection, full ROM. Absent: tenderness, meningismus, lymphadenopathy - Respiratory Respiratory exam: Present: normal lung sounds bilaterally. Absent: respiratory distress, wheezes, rales, rhonchi, stridor, chest wall tenderness, accessory muscle use, decreased breath sounds, prolonged expiratory - Cardiovascular Cardiovascular Exam: Present: regular rate, normal rhythm, normal heart sounds - GI/Abdominal GI/Abdominal exam: Present: soft, normal bowel sounds. Absent: distended, tenderness, guarding, rebound, rigid, organomegaly, mass, bruit, pulsatile mass - Extremities Exam Extremities exam: Present: normal inspection, full ROM, normal capillary refill - Back Exam Back exam: Present: normal inspection, full ROM. Absent: CVA tenderness (R), CVA tenderness (L), muscle spasm, paraspinal tenderness - Neurological Exam Neurological exam: Present: alert, oriented X3, CN II-XII intact, normal gait - Skin Skin exam: Present: warm, intact, normal color ED Course Vital Signs 01/09/18 09:59 Temperature 97.8 F Pulse Rate 83 Respiratory 20 Rate Blood Pressure 170/111 O2 Sat by Pulse 98 Oximetry ED Medical Decision Making - Lab Data Result diagrams: 01/09/18 10:06 01/09/18 10:06 Critical care attestation.: If time is entered above; I have spent that time in minutes in the direct care of this critically ill patient, excluding procedure time. ED Disposition Clinical Impression: Abdominal pain, Constipation Disposition: DC-01 TO HOME OR SELFCARE Is pt being admited?: No Condition: Stable Instructions: Constipation (ED), High Fiber Diet (ED) Referrals: PRIMARY CARE, [Primary Care Provider] - 3-5 Days Forms: Work/School Release Form(ED)
== END 2018-01-09 12:30 | disposition home or self-care (01) ==
LOC: ED 09:55
DX: R10.84 Generalized abdominal pain (principal); K59.00 Constipation, unspecified; J45.909 Unspecified asthma, uncomplicated; F12.10 Cannabis abuse, uncomplicated
CPT/HCPCS: 36415; 80053; 81001; 81025; 83690; 85025

== ENCOUNTER 2018-04-24 14:58 | Emergency (ER) | payer SELFPAY ==
[2018-04-24 15:11] VITALS: BP 155/114
[2018-04-24] MEDS ORDERED: PEPCID PO ONE (15:12)
[2018-04-24] MEDS ORDERED: BENADRYL IM ONE (15:12)
--- NOTE | 2018-04-24 17:50 | Emergency Department Report ---
ED Allergic Reaction HPI - General Chief complaint: Allergic Reaction Stated complaint: SHORTNESS OF BREATH Time Seen by Provider: 04/24/18 17:30 Source: patient Mode of arrival: Ambulatory Limitations: No Limitations - History of Present Illness Initial Comments: Patient is a 32 years old female with history of asthma. Patient presented to the ER complaining of generalized rash and itching that started this morning. Patient does not know what's causing rash. Patient denied any shortness of breath, as stridor, difficulty breathing or difficulty swallowing. Patient also denied any cough or fever. MD Complaint: allergic reaction, hives -: This morning Exposure: unknown Symptoms: rash, itching Treatment Prior to Arrival: benadryl - Related Data Home Medications Medication Instructions Recorded Confirmed Last Taken Cetirizine HCl [Zyrtec] 10 mg PO DAILY 07/28/17 07/28/17 07/28/17 predniSONE [Deltasone] 3 tab PO DAILY 07/28/17 07/28/17 07/28/17 Previous Rx's Medication Instructions Recorded Last Taken Type ALBUTEROL NEB's [Proventil 0.083% 2.5 mg IH TID PRN #25 neb 06/07/17 07/28/17 Rx NEBS] ALBUTEROL Inhaler [ProAir HFA 2 puff IH QID PRN #1 inhalation 07/28/17 Unknown Rx Inhaler] Lindane 1% [Kwell 1%] 1 applicatio TP NOW #1 bottle 07/28/17 Unknown Rx amLODIPine [Norvasc] 5 mg PO DAILY #30 tab 07/28/17 Unknown Rx predniSONE [Deltasone] 40 mg PO QDAY #10 tab 07/28/17 Unknown Rx Docusate Sodium [Colace] 100 mg PO BID PRN #60 capsule 01/09/18 Unknown Rx Lactulose 10 gm PO DAILY PRN #150 ml 01/09/18 Unknown Rx Sodium Phosphate,Polk-Dibasic 118 ml RC ONCE #1 enema 01/09/18 Unknown Rx [Fleet Enema] Allergies Allergy/AdvReac Type Severity Reaction Status Date / Time latex Allergy Rash Verified 12/17/15 09:19 Penicillins Allergy Hives Verified 12/17/15 09:19 ED Review of Systems ROS: Stated complaint: SHORTNESS OF BREATH Other details as noted in HPI Comment: All other systems reviewed and negative Constitutional: denies: chills, fever Respiratory: denies: cough, orthopnea, shortness of breath, SOB with exertion, wheezing Cardiovascular: denies: chest pain Gastrointestinal: denies: abdominal pain, nausea Neurological: denies: headache, weakness ED Past Medical Hx - Past Medical History Hx Hypertension: Yes (noncompliant with meds) Hx Asthma: Yes Hx HIV: No - Surgical History Past Surgical History?: No - Social History Smoking Status: Never Smoker Substance Use Type: None - Medications Home Medications: Home Medications Medication Instructions Recorded Confirmed Last Taken Type ALBUTEROL NEB's [Proventil 0.083% 2.5 mg IH TID PRN #25 neb 06/07/17 07/28/17 Rx NEBS] ALBUTEROL Inhaler [ProAir HFA 2 puff IH QID PRN #1 inhalation 07/28/17 Unknown Rx Inhaler] Cetirizine HCl [Zyrtec] 10 mg PO DAILY 07/28/17 07/28/17 07/28/17 History Lindane 1% [Kwell 1%] 1 applicatio TP NOW #1 bottle 07/28/17 Unknown Rx amLODIPine [Norvasc] 5 mg PO DAILY #30 tab 07/28/17 Unknown Rx predniSONE [Deltasone] 3 tab PO DAILY 07/28/17 07/28/17 07/28/17 History predniSONE [Deltasone] 40 mg PO QDAY #10 tab 07/28/17 Unknown Rx Docusate Sodium [Colace] 100 mg PO BID PRN #60 capsule 01/09/18 Unknown Rx Lactulose 10 gm PO DAILY PRN #150 ml 01/09/18 Unknown Rx Sodium Phosphate,Polk-Dibasic 118 ml RC ONCE #1 enema 01/09/18 Unknown Rx [Fleet Enema] ED Physical Exam - General Limitations: No Limitations General appearance: alert, in no apparent distress - Head Head exam: Present: atraumatic, normocephalic, normal inspection - ENT ENT exam: Present: normal exam, normal orophraynx, mucous membranes moist - Neck Neck exam: Present: normal inspection, full ROM. Absent: tenderness, meningismus - Respiratory Respiratory exam: Present: normal lung sounds bilaterally, wheezes (mild). Absent: respiratory distress, rales, rhonchi, accessory muscle use, decreased breath sounds, prolonged expiratory - Cardiovascular Cardiovascular Exam: Present: regular rate, normal rhythm, normal heart sounds - GI/Abdominal GI/Abdominal exam: Present: soft, normal bowel sounds. Absent: distended, tenderness, guarding, rebound, rigid, organomegaly, mass, bruit, pulsatile mass , hernia - Extremities Exam Extremities exam: Present: normal inspection, full ROM, normal capillary refill. Absent: pedal edema, calf tenderness - Back Exam Back exam: Present: normal inspection, full ROM - Neurological Exam Neurological exam: Present: alert, oriented X3, CN II-XII intact, normal gait, reflexes normal - Skin Skin exam: Present: warm, intact, normal color ED Course Vital Signs 04/24/18 15:08 Temperature 98.7 F Pulse Rate 91 H Respiratory 20 Rate Blood Pressure 155/114 O2 Sat by Pulse 98 Oximetry ED Medical Decision Making - Medical Decision Making Patient's symptoms completely resolved after Benadryl 50 IM, Solu-Medrol 125 IM and Pepcid by mouth. Patient stated that she does have albuterol and a breathing machine at home and she decided to go and start getting breathing treatments for the next 2 days for wheezing. Patient currently does not have any symptoms and she stated that she wanted go home. Critical care attestation.: If time is entered above; I have spent that time in minutes in the direct care of this critically ill patient, excluding procedure time. ED Disposition Clinical Impression: Allergic reaction Disposition: DC-01 TO HOME OR SELFCARE Is pt being admited?: No Condition: Stable Instructions: Allergies (ED) Referrals: PRIMARY CARE, [Primary Care Provider] - 3-5 Days
== END 2018-04-24 17:58 | disposition home or self-care (01) ==
LOC: ED 14:58
DX: R21 Rash and other nonspecific skin eruption (principal); L29.9 Pruritus, unspecified; T78.40XA Allergy, unspecified, initial encounter; I10 Essential (primary) hypertension; J45.909 Unspecified asthma, uncomplicated; Z91.040 Latex allergy status; Z88.0 Allergy status to penicillin; X58.XXXA Exposure to other specified factors, initial encounter
CPT/HCPCS: 96372; 99282; J1200; J2930